=== PATIENT | female | born 1970 | race Caucasian/White ===

== ENCOUNTER 2016-08-30 10:39 | Day surgery (SDC) | payer BC ==
[2016-08-30] VITALS (18 sets, daily range): BP systolic 83–104; BP diastolic 46–67; PULSE 54–72; RESP 16–20; Ht 165.1 cm; Wt 53.0 kg
[~2016-08-30] VITALS: Ht 165.1 cm; Wt 53.0 kg
[~2016-08-30 10:39] MED LIST: NO MEDS
--- NOTE | 2016-08-30 12:58 | HPN ---
Date/Time of Note Date/Time of Note DATE: 08/30/16 TIME: 12:57 Interval H&P Admission Note Pt. seen H&P reviewed: No system changes YUMIKO RENO MD Aug 30, 2016 12:58
[2016-08-30] MEDS ORDERED: ONDANSETRON 4 MG INJ ONE (13:29)
[2016-08-30] MEDS ORDERED: HYDROmorphONE (0.2 MG/ML) 10ML SYG IV PRN ×3 (13:30)
[2016-08-30] MEDS ORDERED: EPHEDrine SULFATE 50 MG/5 ML SYG IV PRN (13:30)
[2016-08-30] MEDS ORDERED: ONDANSETRON 4 MG INJ IV PRN (13:30)
[2016-08-30] MEDS ORDERED: MIDAZOLAM 1 MG/ML 2 ML INJ IV PRN (13:30)
[2016-08-30] MEDS ORDERED: hydrALAzine 20 MG INJ IV PRN (13:30)
[2016-08-30] MEDS ORDERED: MEPERIDINE 25 MG INJ IV PRN (13:30)
[2016-08-30] MEDS ORDERED: OXYCODONE/ACETAMINOPHEN (5/325) TAB PO PRN ×2 (13:30)
[2016-08-30] MEDS ORDERED: DIPHENHYDRAMINE 50 MG INJ IV PRN (13:30)
[2016-08-30] MEDS ORDERED: ATROPINE 1 MG/10 ML SYRINGE IV PRN (13:30)
[2016-08-30] MEDS ORDERED: FENTAnyl 50 MCG/ML VIAL IV PRN ×2 (13:30)
[2016-08-30] MEDS ORDERED: morphine (1 MG/ML) 10ML SYRINGE IV PRN ×3 (13:30)
[2016-08-30] MEDS ORDERED: LABETALOL HCL 20MG INJ IV PRN (13:30)
[2016-08-30] MEDS ORDERED: LIDOCAINE 100 MG SYRINGE ONE (13:31)
[2016-08-30] MEDS ORDERED: PROPOFOL 20 ML ONE (13:31)
[2016-08-30] MEDS ORDERED: ROCURONIUM 50 MG INJ ONE (13:31)
[2016-08-30] MEDS ORDERED: GLYCOPYRROLATE 0.4 MG INJ ONE (13:32)
[2016-08-30] MEDS ORDERED: NEOSTIGMINE 3 MG/3 ML SYRINGE ONE (13:32)
--- NOTE | 2016-08-30 14:29 | PD.PPDC ---
[employer] AD[employer] Discharge Instruction Diagnosis Final Diagnosis: abnormal uterine bleeding Condition Patient Condition: Stable Diet Diet: Resume Regular Diet Activity/Restrictions Activity: May Shower Restrictions: No Sexual Activity Nothing in the Vagina No [place] No Tampons, douche Follow-up Follow-up with Physician: 2, Week/Weeks Return to clinic for DEPOT MANAGER Instructions: Fever greater than 101 Chills Worsening abdominal pain Excessive Vaginal Bleeding More than 2 pads per hour Unable to tolerate diet YUMIKO RENO MD Aug 30, 2016 14:29
--- NOTE | 2016-08-31 13:13 | OPR ---
DATE OF OPERATION: 08/30/2016 PREOPERATIVE DIAGNOSIS: Menorrhagia. POSTOPERATIVE DIAGNOSIS: See pathological report, and prominent endometrium. PROCEDURE PERFORMED: Hysteroscopical dilatation and curettage. SURGEON: Mary Kaba MD ANESTHESIA: General. ANESTHESIOLOGIST: Kel Holcomb MD ESTIMATED BLOOD LOSS: Negligible. DESCRIPTION OF PROCEDURE: Under the proper induction of general anesthesia, the patient was placed in dorsal lithotomy position. Perineal area and vagina wall were prepped and draped in usual asepti c manner. Bimanual examination revealed uterus is approximately 8 weeks of gestational size, firm i n consistency, and there were no palpable adnexal pathology. Weighted speculum was introduced and t he cervix was identified, which was grasped with a single-tooth tenaculum. Endocervical curettage w as performed with obtaining scanty tissue, which was sent to pathology. Then, the cavity was sounde d, which was 10 cm in depth. The os was dilated up to size 6 and the prepared hysteroscope attached to the multiple tubes inflow connected to the normal saline, and after proper preparation the hyste roscope was inserted. Endocervical canal was entered and advanced gradually and it was difficult to see the tubal ostium because the tissue was so abundant, covering the whole scope. Then, the fundu s was identified. The resector was inserted and the entire cavity was curetted in usual fashion. T he procedure took about 20 minutes to do the curettage slowly. Preprocedure a picture was taken and after the procedure a picture was taken. The entire endometrium was curetted which was very abunda nt. The entire endometrium was curetted with incisor. The retrieval of the tissue in the collectio n kit was sent to pathology. Unfortunately, the picture did not come out somehow, the was not connected. After the procedure was completed, all the instruments were removed from the patient in cluding the tenaculum. No bleeder was noted. The patient went to recovery room in stable condition . Sponge count taken which was correct. Dictated By: MARY MCKEON/ALEX Conf#: [id number] DID#: [id number]
== END 2016-08-30 16:40 | disposition home or self-care (01) ==
LOC: SDS 10:39
PROVIDERS: ATTEND Obstetrics & Gynecology
DX: N92.0 Excessive and frequent menstruation with regular cycle (principal); N85.01 Benign endometrial hyperplasia
CPT/HCPCS: 58558; 84703; 88305; J2001; J2405; J2710